=== PATIENT | female | born 1955 | race Caucasian/White ===

== ENCOUNTER → 2016-11-22 | Outpatient (CLI) | payer MEDICARE, OTHER ==
[~2016-11-22] MED LIST: ACETAMINOPHEN PO; ACTONEL PO; ALBUTEROL17 GM INH; ALPRAZOLAM ODT0.5 MG PO; ALPRAZOLAM PO; ASPIR-TRIN325 MG PO; CLARITIN10 MG PO; FLAGYL PO; FLONASE 0.05% N16 G1; HYDROCODON-ACE1 EAC5 PO; LORTAB 10-5001 EACH PO; LORTAB 10/500 T1 TAB PO; LORTAB 5/500 TA1 TA1; LORTAB 5/500 TA1 TA1 PO; MEDROL4 MG/DOSE- PO; NICOTINE PATCH TOP; OMEPRAZOLE40 M1 PO; OMEPRAZOLE40 MG PO; OXYCODONE HCL5 MG PO; OXYCODONE20 MG/1 M1 PO; PERCOCET5/325 PO; PERIACTIN4 M1 PO; PERIACTIN4 MG PO; PHENERGAN25 M1 PO; PRAVASTATIN SOD10 MG PO; SEROQUEL PO; VIBRAMYCIN100 M1 PO; VICODIN; VICODIN 5/1 TAB 5/50 PO; VICODIN 5/500 T1 TAB PO; VITAL-D RX TABL1 TAB PO; XANAX1 MG PO; ZOFRAN PO; ZOLOFT PO; ZOLOFT50 MG PO
== END | disposition home or self-care (01) ==
LOC: CRAD 09:22
DX: C32.1 Malignant neoplasm of supraglottis (principal); C21.1 Malignant neoplasm of anal canal; C21.0 Malignant neoplasm of anus, unspecified; N94.89 Other specified conditions associated with female genital organs and menstrual cycle
CPT/HCPCS: 74230; 92611; G8996-GN; G8997-GN; G8998-GN

== ENCOUNTER → 2016-11-29 | Day surgery (SDC) | payer MEDICARE, OTHER ==
--- NOTE | ~2016-11-29 | OR ---
Unit #: [id number] #: [id number] Patient: DICK GONZALEZ [id number] [address] [place], [place] [address] [id number] O MR#: [id number] NAME: DICK GONZALEZ ROOM: Date of Procedure: 11/29/2016 Admission Date: 11/29/2016 Surgeon: Nic Barr M.D. : 1955 Attending Physician: Nic Barr M.D. Primary Care Physician: Anabel Harrington A.P.R.N. OPERATIVE REPORT PRIMARY CARE PHYSICIAN Anabel Harrington A.P.R.N. PREOPERATIVE DIAGNOSES The patient has lung cancer, status post radiation therapy. She has not used the PEG tube for quite sometime and needs to get it removed. She is status post XRT for oropharyngeal cancer. PROCEDURES PERFORMED Upper gastrointestinal endoscopy and removal of endoscopic removal of the percutaneous endoscopic gastrostomy tube. POSTOPERATIVE DIAGNOSIS The patient has lung cancer, status post radiation therapy. She has not used the PEG tube for quite sometime and needs to get it removed. She is status post XRT for oropharyngeal cancer. RECOMMENDATIONS The patient will follow up with Dr. Pineda. She will also follow up with me on an as needed basis. SEDATION USED MAC. DESCRIPTION OF PROCEDURE Following detailed explanation of the potential risks and complications of an upper endoscopy, namely perforation, bleeding, and complications related to sedation, the patient was brought to GI lab and laid in the supine position. Sedation using MAC was given. Lubricated tip of the Olympus video upper endoscope was passed through the bite block into the proximal esophagus under direct vision. The entire esophageal mucosa was examined and appeared normal. Z-line was nicely demarcated, there being no esophagitis or hiatus hernia. The scope was then advanced into the gastric cavity and the latter was insufflated. Mucosa of the fundus, body, and antrum examined. Indwelling PEG tube was also noted. Pylorus was intubated with visualization of the normal duodenal bulb and second and third part of the duodenum. Upon withdrawal and retroflexion, incisura, cardia, and greater curve examined and no additional findings noted. The attention was then focused on the inner mushroom of the PEG tube. The latter was grasped using a polypectomy snare. The PEG tube was then cut with a pair of scissors just outside the skin. The mushroom was then removed endoscopically and delivered outside. Dry dressing was Unit #: [id number] #: [id number] Patient: DICK GONZALEZ applied of the matured gastrocutaneous fistula. The patient tolerated the procedure without any postprocedure complications. Dictated by... Barb Cazares/kwasi TD: 11/30/2016 07:02 JOB #: [id number] Hany Pineda M.D. OPERATIVE REPORT Page 1 of 1 X Nic Barr MD X PROCEDURE OPERATIVE NOTE
== END | disposition home or self-care (01) ==
LOC: COPS 09:57
DX: Z46.59 Encounter for fitting and adjustment of other gastrointestinal appliance and device (principal); J43.9 Emphysema, unspecified; K21.9 Gastro-esophageal reflux disease without esophagitis; M19.90 Unspecified osteoarthritis, unspecified site; F17.210 Nicotine dependence, cigarettes, uncomplicated; Z85.118 Personal history of other malignant neoplasm of bronchus and lung; Z87.01 Personal history of pneumonia (recurrent); Z88.0 Allergy status to penicillin; Z88.5 Allergy status to narcotic agent; Z88.8 Allergy status to other drugs, medicaments and biological substances; Z79.891 Long term (current) use of opiate analgesic; Z79.899 Other long term (current) drug therapy; Z90.49 Acquired absence of other specified parts of digestive tract; Z90.710 Acquired absence of both cervix and uterus; Z98.890 Other specified postprocedural states
CPT/HCPCS: J1642

== ENCOUNTER 2017-03-15 17:08 | Emergency (ER) | payer MEDICARE, OTHER ==
--- NOTE | ~2017-03-15 | CR72 ---
[facility] A Service of [facility] & [facility] RADIOLOGY TEXT RESULTS PATIENT: DICK GONZALEZ LOCATION: [facility] : 53 UNIT #: [id number] AGE: [address]: Akua Palacios MD SEX: F ORDER DR: [id number] [facility] [address] [place], [place] [address] [id number] E MR#: [id number] Acc #: [id number] NAME: DICK GONZALEZ. : 1955 SEX: F STUDY DATE/TIME: 03/15/2017 18:32 UNIT: [facility] ROOM: STUDY DESCRIPTION: CR Chest Single View Portable Attending Physician: Akua Palacios M.D. Ordering Physician: Akua Palacios M.D. Primary Care Physician: Anabel Harrington A.P.R.N. MEDICAL IMAGING REPORT This report is preliminary unless electronic signature is present EXAM Frontal chest, 03/15/2017. INDICATIONS 61-year-old female with cough, congestion, nausea vomiting and weakness that began a month ago. History of colon, throat and lung cancer. Emphysema. TECHNIQUE Frontal chest was performed and compared with 03/10/2016. FINDINGS MediPort catheter tip is at the distal SVC level. Cardiac silhouette within normal limits. The lungs demonstrate emphysema. There is more confluent fibrosis and scarring in the right lung compared to the left particularly in the [id number] lung zone, but findings are probably unchanged for technical factors. Tenting of the left hemidiaphragm. No pneumothorax, effusion or dense consolidation. There is a curvilinear density projecting over the left lung apex. Imaging features are most likely related to a skin fold. There appear to be lung markings extending peripherally and this is probably artifact. A better positioned frontal chest or departmental two-view chest could also be performed for confirmation of artifact. IMPRESSION 1. New MediPort catheter tip at the distal SVC level. 2. Probable skin fold artifact on the left. No convincing evidence of pneumothorax. This could be confirmed with a better positioned frontal chest or departmental two-view chest if there is concern for pneumothorax. 3. Chronic-appearing lung changes. No definite superimposed active STS. [facility] A Service of [facility] & [facility] RADIOLOGY TEXT RESULTS PATIENT: DICK GONZALEZ LOCATION: [facility] #: [id number] : [birth year] UNIT #: [id number] AGE: [address]: Akua Palacios MD SEX: F ORDER DR: disease or significant change from prior study for technical factors. STAT * RESULT Dictated by... Robbie Kat M.D. THIS IS AN ELECTRONICALLY VERIFIED REPORT Robbie Kat M.D. at 03/15/2017 7:37 PM Kasie TD: 03/15/2017 19:26 JOB #: [id number] MEDICAL IMAGING REPORT Page 1 of 1 COPY
[2017-03-15 19:24] LABS: BASOPHIL# 0.1 X10e3 (0-0.3); BASOPHIL% 1.3 % (0-2.5); EOSINOPHIL% 0.7 % (0.0-7.0); HEMATOCRIT 32.8 % (35.0-45.0); LYMPHOCYTE# 0.6 X10e3 (1.0-3.5); LYMPHOCYTE% 15.6 % (17.0-45.0); MEAN CELL VOLUME 89.1 FL (83-96); MEAN CORPUSCULAR HEMOGLOBIN 29.9 PG (28-34); MEAN CORPUSCULAR HGB CONC 33.6 g/dL (30-36); MEAN PLATELET VOLUME 6.9 FL (6.5-11.5); MONOCYTE# 0.5 X10e3 (0-1.0); MONOCYTE% 11.8 % (3.0-12.0); NEUTROPHIL# 2.7 X10e3 (1.5-7.1); NEUTROPHIL% 70.6 % (40-75); PLATELET COUNT 268 X10e3 (140-420); RED BLOOD COUNT 3.68 X10e (3.90-5.30); RED CELL DISTRIBUTION WIDTH 16.4 % (11.0-15.5); WHITE BLOOD COUNT 3.8 X10e3 (4.0-10.5)
[2017-03-15 19:30] LABS: DIFF IND NO
[2017-03-15 19:32] LABS: INR 1.1; PROTHROMBIN TIME (PATIENT) 11.4 SECONDS (10.0-11.7)
[2017-03-15 19:38] LABS: URINE SOURCE CLEAN CATCH
[2017-03-15 19:44] LABS: URINE APPEARANCE CLEAR; URINE BILIRUBIN NEG (NEG); URINE BLOOD NEG (NEG); URINE COLOR YELLOW; URINE GLUCOSE NEG (NEG); URINE KETONE NEG (NEG); URINE LEUKOCYTE ESTERASE NEG (NEG); URINE NITRATE NEG (NEG); URINE PROTEIN NEG (NEG); URINE SPECIFIC GRAVITY 1.005 (1.003-1.035); URINE UROBILINOGEN 0.2 MG/DL (NEG)
[2017-03-15 19:46] LABS: ALBUMIN SERUM 4.8 g/dL (3.5-5.0); ALCOHOL BLOOD <5 mg/dL (0); ALKALINE PHOSPHATASE 45 U/L (32-92); ALT (SGPT) 25 U/L (10-40); AST (SGOT) 48 U/L (10-42); BILIRUBIN, DIRECT 0.1 mg/dL (0.0-0.2); BILIRUBIN,INDIRECT 0.7 mg/dL (0.0-0.9); BILIRUBIN,TOTAL 0.8 mg/dL (0.2-2.0); BLOOD UREA NITROGEN 11 mg/dL (9-23); BUN/CREATININE RATIO 12.22; CALCIUM SERUM 8.8 mg/dL (8.4-10.2); CARBON DIOXIDE 30 mmol/L (22-31); CHLORIDE 94 mmol/L (100-111); CPK (CREATINE PHOSPHOKINASE) 558 IU/L (26-140); CREATININE SERUM 0.9 mg/dL (0.6-1.4); GLOM FILT RATE Estimated 68.6 mL/min (>60); GLUCOSE FASTING 79 mg/dL (70-110); MAGNESIUM 2.5 mg/dL (1.6-3.0); POTASSIUM 3.7 mmol/L (3.5-5.1); PROTEIN TOTAL SERUM 7.7 g/dL (6.0-8.3); SODIUM 131 mmol/L (135-145)
[2017-03-15 19:48] LABS: CULTURE INDICATED? NO
[2017-03-15 19:53] LABS: AMPHETAMINE NEG (NEG); BARBITURATES NEG (NEG); BENZODIAZEPINES POS (NEG); COCAINE NEG (NEG); MARIJUANA POS (NEG); OPIATES NEG (NEG); TRICYCLIC ANTIDEPRESSANTS NEG (NEG); U METHADONE NEG (NEG)
== END 2017-03-15 20:45 | disposition home or self-care (01) ==
LOC: CED 17:08
PROVIDERS: Emergency Medicine
DX: F32.9 Major depressive disorder, single episode, unspecified (principal); R53.1 Weakness; G89.29 Other chronic pain; J44.9 Chronic obstructive pulmonary disease, unspecified; F41.9 Anxiety disorder, unspecified; F17.210 Nicotine dependence, cigarettes, uncomplicated; Z90.710 Acquired absence of both cervix and uterus; Z90.49 Acquired absence of other specified parts of digestive tract; Z88.0 Allergy status to penicillin; Z88.8 Allergy status to other drugs, medicaments and biological substances
CPT/HCPCS: 71010; 80048; 80076; 80307; 81003; 82550; 83735; 85025; 85610; 85730; 96361; 96374; 99284; G0480; J1642; J1885

== ENCOUNTER → 2017-05-17 | Outpatient (CLI) | payer MEDICARE, OTHER ==
--- NOTE | ~2017-05-17 | CT114 ---
[facility] A Service of [facility] & [facility] RADIOLOGY TEXT RESULTS PATIENT: DICK GONZALEZ [facility] : 53 UNIT #: [id number] AGE: [address]: Dileep Cesar MD SEX: F ORDER DR: [id number] [facility] [address] [place], [place] [address] [id number] O MR#: [id number] [facility] #: [id number] NAME: DICK GONZALEZ : 1955 SEX: F STUDY DATE/TIME: 05/17/2017 14:32 UNIT: [facility] ROOM: STUDY DESCRIPTION: CT Soft Tissue Neck W Cont Attending Physician: Dileep Cesar M.D. Referring Physician: Dileep Cesar M.D. Ordering Physician: Dileep Cesar M.D. Primary Care Physician: Anabel Harrington A.P.R.N. MEDICAL IMAGING REPORT This report is preliminary unless electronic signature is present EXAM Soft tissue neck CT with contrast 05/17/2017 PROCEDURE Axial contrast-enhanced soft tissue neck CT with multiplanar reformats. The CT exam was performed with one or more of the following radiation dose reduction techniques: automatic exposure control, adjustment of mA and/or kV according to patient size, and iterative reconstruction. COMPARISON: PET/CT 07/18/2016. CLINICAL HISTORY: History of laryngeal carcinoma. Routine follow up. Short of air for 1 year. FINDINGS There is no suspicious cervical adenopathy. There is obscuration of fat planes likely related to therapy, and there is a relative atrophy of the parotid and submandibular salivary glands, again likely related to radiotherapy. There is no bone erosion or destruction or discrete soft tissue mass. There is sclerosis of the right arytenoid cartilage though also seen on the prior study. Significance uncertain. The upper mediastinum is remarkable only for aberrant origin of the right subclavian artery. There are emphysematous changes in the lung apices, but no suspicious nodule is seen. There are spinal degenerative changes but there is no fracture or bone erosion or destruction. IMPRESSION No discrete mass or suspicious adenopathy. Mucosal edema and obscured tissue planes likely related to radiotherapy, as there is relative atrophy [facility] A Service of [facility] & [facility] RADIOLOGY TEXT RESULTS PATIENT: DICK GONZALEZ LOCATION: [facility] : 53 UNIT #: [id number] AGE: [address]: Dileep Cesar MD SEX: F ORDER DR: of the submandibular and parotid glands. The thyroid gland remains relatively atrophic. No compelling evidence of recurrent disease. Dictated by... Stanley Ashby M.D. THIS IS AN ELECTRONICALLY VERIFIED REPORT Stanley Ashby M.D. at 05/24/2017 2:15 PM PEDRO/galina TD: 05/24/2017 14:06 JOB #: [id number] MEDICAL IMAGING REPORT Page 1 of 1 COPY
--- NOTE | ~2017-05-17 | CT55 ---
[facility] A Service of [facility] & [facility] RADIOLOGY TEXT RESULTS PATIENT: DICK GONZALEZ LOCATION: [facility] : 53 UNIT #: [id number] AGE: [address]: Dileep Cesar MD SEX: F ORDER DR: [id number] [facility] [address] [place], [place] [address] [id number] O MR#: [id number] [facility] #: [id number] NAME: DICK GONZALEZ : 1955 SEX: F STUDY DATE/TIME: 05/17/2017 14:32 UNIT: [facility] ROOM: STUDY DESCRIPTION: CT Chest W Con Attending Physician: Dileep Cesar M.D. Referring Physician: Dileep Cesar M.D. Ordering Physician: Dileep Cesar M.D. Primary Care Physician: Ruel AldanaPChanell MEDICAL IMAGING REPORT This report is preliminary unless electronic signature is present EXAM CT chest with contrast DATE 05/17/2017 HISTORY Malignant anal cancer and laryngeal cancer. History of shortness of breath for 1 year, getting worse slowly. COMPARISON CT chest 12/20/2015. PROCEDURE 5 mm axial images through the chest after intravenous contrast administration. Sagittal and coronal reformatted images were obtained. This CT exam was performed with one or more of the following radiation dose reduction techniques: Automatic exposure control, adjustment of mA and/or kV according to patient size, and iterative reconstruction. FINDINGS Severe emphysematous changes are present. There is some chronic subpleural linear scarring in the left lower chest. No suspicious pulmonary nodules. No acute airspace disease. 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 Right chest wall Port-A-Cath extends into the SVC. Mild coronary artery calcifications are present. The descending thoracic aorta is ectatic at 2.7 cm but is not aneurysmal. Mildly prominent right hilar lymph node measuring 1.6 x 1.3 cm is stable since 06/14/2015, where it measured 1.7 x 1.4 cm, in keeping with benign reactive finding. STS. [facility] A Service of [facility] & [facility] RADIOLOGY TEXT RESULTS PATIENT: DICK GONZALEZ LOCATION: [facility] : 53 UNIT #: [id number] AGE: [address]: Dileep Cesar MD SEX: F ORDER DR: Right renal cyst is noted. Left lumbar hernia containing descending colon, incompletely imaged. Cholecystectomy. 1.3-cm nodule projecting from the medial limb of the left adrenal gland is unchanged from 2014, most in keeping with a benign finding, such as an adenoma. Right adrenal gland unremarkable. Surgical changes of left upper lobe lung resection, per previous provided history. IMPRESSION 1. No acute chest findings. 2. Severe emphysema. 3. Surgical changes related to prior history of left upper lobe lung resection. 4. Left adrenal nodule is a stable finding since 2014, most suggestive of a benign finding such as an adenoma. 5. Left side lumbar hernia containing descending colon, incompletely imaged. 6. Cholecystectomy. 7. Right renal cyst. 8. Mildly prominent right hilar lymph node has been stable since 06/14/2015, most in keeping with a benign finding. Dictated by... Sarah Montes M.D. THIS IS AN ELECTRONICALLY VERIFIED REPORT Sarah Montes M.D. at 05/19/2017 1:11 PM DANNI/swetha TD: 05/18/2017 16:29 JOB #: [id number] MEDICAL IMAGING REPORT Page 1 of 1 COPY
[2017-05-17 15:41] LABS: POC - CREATININE 0.86 mg/dL (0.44-1.03); POC - GFR >60.0 mL/min (>60)
== END | disposition home or self-care (01) ==
LOC: CCAT 13:12
PROVIDERS: Internal Medicine Medical Oncology
DX: C32.1 Malignant neoplasm of supraglottis (principal); C21.1 Malignant neoplasm of anal canal; J43.9 Emphysema, unspecified; E27.8 Other specified disorders of adrenal gland; K45.8 Other specified abdominal hernia without obstruction or gangrene; N28.1 Cyst of kidney, acquired; Z90.49 Acquired absence of other specified parts of digestive tract
CPT/HCPCS: 70491; 71260; 82565; J1642; Q9967